=== PATIENT | male | born 1975 | race African-American/Black ===

== ENCOUNTER 2019-03-15 11:54 | Emergency (ER) | payer OTHER ==
[2019-03-15 12:07] VITALS: BMI 52.4
[2019-03-15] MEDS ORDERED: FAMOTIDINE 20 MG/50 ML IVPB 20 MG/50 ML MG IVPB ONE ×2 (12:23→12:44)
[2019-03-15] MEDS ORDERED: METOCLOPRAMIDE HCL INJECTION 10 MG/2 ML VIAL IVPUSH ONE (12:23)
[2019-03-15] MEDS ORDERED: FOLIC ACID INJECTION - 1 MG, THIAMINE HCL 100 MG, MULTIVIT INJECTION ADULT 10 ML in SOD... IVPB ONE (12:23)
[2019-03-15] MEDS ORDERED: SODIUM CHLORIDE 0.9% 500 ML INFUS.BAG IV ONE (12:23)
[2019-03-15] MEDS ORDERED: METOCLOPRAMIDE HCL INJECTION 10 MG/2 ML VIAL ONE (12:44)
[2019-03-15 13:02] LABS: BASO % 2.4 % (0-2.0); EOS % 0.3 % (0-4.5); HEMATOCRIT 40.2 % (35.4-49); HEMOGLOBIN 13.6 GM/dL (11.7-16.9); LYMPH % 51.9 % (8-40); MCH 28.6 pg (25.7-33.7); MCHC 33.9 g/dl (32.0-35.9); MEAN CELL VOLUME 84.2 fl (80-96); MEAN PLT VOLUME 7.5 fl (7.5-11.1); MONO % 12.9 % (3.8-10.2); NEUT % 32.5 % (42.8-82.8); PLATELET COUNT 315 K/MM3 (134-434); RBC 4.78 M/mm3 (4.00-5.60); RDW 16.8 % (11.9-15.9); WHITE BLOOD COUNT 5.5 K/mm3 (4.0-10.0)
--- NOTE | 2019-03-15 13:05 | PDOC ---
Documentation entered by Solange España SCRIBE, acting as scribe for Alesia Santos MD. Alesia Santos MD: This documentation has been prepared by the Patria guerin Xhesika, SCRIBE, under my direction and personally reviewed by me in its entirety. I confirm that the documentation accurately reflects all work, treatment, procedures, and medical decision making performed by me. History of Present Illness - General Chief Complaint: Alcohol intoxication Stated Complaint: intoxication History Source: Patient Exam Limitations: No Limitations - History of Present Illness Initial Comments: 03/15/19 12:28 HPI Patient is a 43 year old male with a significant past medical history of etoh use/dependence, HTN, IDDM who presents to the ED for alcohol intoxication and requesting detox. Patient notes he drinks 40ozx3, with last drink this morning. Pt reports associated abdominal pain, nausea, vomiting, and chest pain for several days. History is limited due to patient intox. Denies fever, chills, SOB, palpitations, dizziness, weakness, D, bladder and bowel problems, leg swelling, No sick contacts or travel. No new changes in medications. usually on lisinopril, lantus and humalog. Allergies: Shellfish derived Past Medical History: See HPI Social history: No tobacco. daily etoh use/dependence Meds: as documented in EMR Review of systems Constitutional: no fevers or chills. No weakness HEENT: no headache or dizziness. No congestion. No visual/hearing disturbances. CVS: + cp. No syncope. Resp: no sob. No cough. Gastrointestinal: + abdominal pain, nausea, vomiting. No diarrhea. Genitourinary: no urinary sx, hematuria. MUSCULOSKELETAL: No joint pain and swelling. No neck or back pain. SKIN: no redness or skin changes, no discharge, no rash. No wounds. Hematologic: no easy bruising/bleeding. NEUROLOGIC: No headache, dizziness, LOC or altered mental status. No weakness, numbness or tingling. Psych: no anxiety or depression Allergic/Immunologic: no allergies All other systems reviewed and negative, or as documented in HPI. Physical exam General: Well appearing, awake and alert, NAD. +intoxicated. + slurring speech. HEENT: NCAT, PERRL, EOMI, clear conjunctiva, anicteric, moist mucus membranes, clear oropharynx, no oral lesions.. Neck: neck supple, FROM Resp: CTAB, normal and even respirations, no respiratory distress CVS: +tachycardic. RRR, no murmurs, 2+ peripheral pulses throughout, no peripheral edema Abdomen: + morbidly obese. +Epigastrium TTP. soft, ND, no rebound or guarding. Back: nontender, normal inspection and ROM MSK: no edema, GIANG x4, ROM intact. No clubbing or cyanosis. normal bulk and tone. Extremities: no calf tenderness Neuro: alert, oriented appropriately; no focal neurologic deficits, +mildly tremulous in extremities Psych: Calm and cooperative Skin: warm and well perfused, cap refill <2 sec, normal color 03/15/19 15:07 Past History - Past Medical History Allergies/Adverse Reactions: Allergies Allergy/AdvReac Type Severity Reaction Status Date / Time shellfish derived Allergy Verified 03/15/19 11:59 *Physical Exam - Vital Signs Last Vital Signs Temp Pulse Resp BP Pulse Ox 98.6 F 108 H 20 162/112 H 95 03/15/19 12:00 03/15/19 12:00 03/15/19 12:00 03/15/19 12:00 03/15/19 12:00 Heart Score/ECG Review #1 ECG reviewed & interpreted by me at: 12:35 General ECG Interpretation: Sinus Rhythm, Normal Intervals Compared to previous ECG there are: Previous ECG unavail 03/15/19 13:04 nonspecific T wave abnormalities, part in lateral and III/AVF sinus tachycardia at 107 bpm 03/15/19 15:08 ED Treatment Course - LABORATORY CBC & Chemistry Diagram: 03/15/19 12:57 03/15/19 12:57 - ADDITIONAL ORDERS Additional order review: Laboratory Results 03/15/19 12:11 POC Glucometer 312 03/15/19 12:11 POC Glucometer 312 - Medications Given in the ED: ED Medications Discontinued Medications Generic Name Dose Route Start Last Admin Trade Name Freq PRN Reason Stop Dose Admin Metoclopramide HCl 10 mg 03/15/19 12:23 03/15/19 12:58 Reglan Injection - IVPUSH 03/15/19 12:24 10 mg ONCE ONE Administration Medical Decision Making - Medical Decision Making 03/15/19 13:03 Vital Signs Temp Pulse Resp BP Pulse Ox 98.6 F 108 H 20 162/112 H 95 03/15/19 12:00 03/15/19 12:00 03/15/19 12:00 03/15/19 12:00 03/15/19 12:00 DDx abdominal pain: Renal colic, biliary colic, metabolic/electrolyte derangements. GERD, PUD, esophageal spasm, pancreatitis, hepatitis, constipation , colitis, gastroenteritis, cholecystitis, medication side effect, hernia, ACS arrhythmia, alcohol intox, alcohol gastritis, alcohol w/d labs and lytes wnl. LFTs/lipase wnl. trop neg, EKG unremarkable, no elevations or depressions to suggest cardiac or arrhythmia etiology no e/o pancreatitis. given meds, analgesia, banana bag, IVF and antiemetics. sobriety, alcohol level 300s carley with intox state. librium for mild alcohol w/d, likely causing the tachycardia 03/15/19 14:59 - on reassessment, sober. pt monitored closely in the ED, sobriety hold. remained comfortable, no acute events, VS remain stable - intermittently hypertensive, +tachy - likely from alcohol w/d initially.. at time of discharge, patient denies any trauma, clinically improved, sober, speech clear, gait stable. tolerated PO intake, abdomen soft nontender, obese. no peritoneal findings. asymptomatic now. no acute neuro changes, normal mental status. no evidence of SI or HI or psychosis. persistent tachy up to 120s. still finishing fluids. still likely from ETOH w/d , but pt is clinically sober and states he feels better with the librium. Discussion at the bedside with patient - pt wishes to to leave prior to finishing fluids/tachy and reassessment. Pt has capacity to make medical decisions. I believe this patient is of sound mind and competent to refuse medical care. The patient is responding and asking questions appropriately. The patient is oriented to person, place and time. The patient is not psychotic, delusional, suicidal, homicidal or hallucinating. The patient demonstrates a normal mental capacity to make decisions regarding their healthcare. The patient is clinically sober and does not appear to be under the influence of any illicit drugs at this time. The patient has been advised of the risks, in layman terms, of leaving AMA which include, but are not limited to cardiopulmonary arrest, severe infection, blood stream infection, dehydration, bleeding, multiorgan failure including liver, kidney, brain, lung and heart, myocardial infarction, arrhythmia, stroke, seizure, respiratory failure, delay in diagnosis and management, loss of current lifestyle, loss of functional status, coma, severe disability and . Alternatives have been offered - the patient remains steadfast in their wish to leave. The patient has been advised that should they change their mind they are welcome to return to this hospital, or any other, at any time. The patient understands that in no way does an AMA discharge mean that I do not want them to have the best medical care available. To this end, I have provided appropriate prescriptions, referrals, and discharge instructions. The patient did sign AMA paperwork. The above discussion was witnessed by another member of staff, GENO Blancas offered detox and resources for ETOH abuse. prompt follow up encouraged. [facility] referral given, pt given referrals, we have called to discuss with facility for placement and assessment. 03/15/19 15:47 03/15/19 15:50 03/15/19 15:51 Discharge - Discharge Information Problems reviewed: Yes Clinical Impression/Diagnosis: Tachycardia Alcohol intoxication Qualifiers: Complication of substance-induced condition: uncomplicated Qualified Code(s): F10.920 - Alcohol use, unspecified with intoxication, uncomplicated Condition: Stable Disposition: AGAINST MEDICAL ADVICE - Admission No - Follow up/Referral Referrals: Pepe Newton MD [Staff Physician] - - Patient Discharge Instructions Patient Printed Discharge Instructions: DI for Alcohol Abuse Additional Instructions: SUBSTANCE ABUSE REFERRALS 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 you are of sound mind and competent to refuse medical care. you demonstrate a normal mental capacity to make decisions regarding their healthcare. The patient is clinically sober and does not appear to be under the influence of any illicit drugs at this time. you have been advised of the risks, in layman terms, of leaving AMA which include, but are not limited to cardiac arrest, severe infection, blood stream infection, dehydration, worsening bleeding, liver failure, arrhythmia, respiratory failure, delay in diagnosis and management, loss of current lifestyle, loss of functional status, multiorgan failure, seizure, coma, severe disability and . Alternatives have been offered - you are given referrals for specialists to see for your presentation. you have been advised that should they change their mind they are welcome to return to this hospital, or any other , at any time. you understand that in no way does an AMA discharge mean that I do not want them to have the best medical care available. To this end, I have provided appropriate prescriptions, referrals, and discharge instructions. you signed AMA paperwork. The above discussion was witnessed by another member of staff, GENO Blancas. - Post Discharge Activity
[2019-03-15 13:38] LABS: ALBUMIN 3.5 g/dl (3.4-5.0); ALK PHOS 101 U/L (45-117); ANION GAP 10 MMOL/L (8-16); BILIRUBIN,TOTAL 0.6 mg/dL (0.2-1); BLOOD UREA NITROGEN 3.6 mg/dL (7-18); CALCIUM 8.6 mg/dL (8.5-10.1); CHLORIDE 105 mmol/L (98-107); CO2 22 mmol/L (21-32); CREATININE 0.9 mg/dL (0.55-1.3); GLUCOSE,RANDOM 312 mg/dL (74-106); LIPASE 125 U/L (73-393); POTASSIUM 4.3 mmol/L (3.5-5.1); SGOT/AST 73 U/L (15-37); SGPT/ALT 67 U/L (13-61); SODIUM 137 mmol/L (136-145); TOT PROT 8.6 g/dl (6.4-8.2)
[2019-03-15] MEDS ORDERED: chlordiazePOXIDE HCL 25 MG CAPSULE PO ONE (14:31)
[2019-03-15] MEDS ORDERED: chlordiazePOXIDE HCL 25 MG CAPSULE ONE (14:36)
[2019-03-15 15:10] VITALS: TEMP 98.4
[2019-03-15 15:53] VITALS: BP 144/106; PULSE 123
--- NOTE | 2019-03-16 11:59 | EKG ---
Test Reason : Blood Pressure : / mmHG Vent. Rate : 107 BPM Atrial Rate : 107 BPM P-R Int : 132 ms QRS Dur : 072 ms QT Int : 322 ms P-R-T Axes : 065 019 007 degrees QTc Int : 429 ms SINUS TACHYCARDIA OTHERWISE NORMAL ECG NO PREVIOUS ECGS AVAILABLE Confirmed by MEREDITH MILES MD ([id number]) on 03/16/2019 11:59:24 AM Referred By: Confirmed By:MEREDITH MILES MD
== END 2019-03-15 15:56 | disposition left against medical advice (07) ==
LOC: JER 11:54
PROC: 3E033GC Introduction of Other Therapeutic Substance into Peripheral Vein, Percutaneous Approach (ICD-10-PCS; principal; 2019-03-15)
PROC: 3E033GC Introduction of Other Therapeutic Substance into Peripheral Vein, Percutaneous Approach (ICD-10-PCS; 2019-03-15)
DX: F10.220 Alcohol dependence with intoxication, uncomplicated (principal); R00.0 Tachycardia, unspecified; Y90.8 Blood alcohol level of 240 mg/100 ml or more; E10.65 Type 1 diabetes mellitus with hyperglycemia; Z79.4 Long term (current) use of insulin; I10 Essential (primary) hypertension; Z91.013 Allergy to seafood
CPT/HCPCS: 36415; 80053; 80307; 82962; 83690; 84484; 85025; 93005; 93010; 96365; 96366; 96367; 99284-25; J7030

== ENCOUNTER 2022-05-18 09:02 | Inpatient (IN) | payer OTHER ==
[2022-05-18] MEDS ORDERED: diazePAM CARPU-JECT 10 MG/2 ML DISP.SYRIN IVPUSH ONE ×3 (11:13→20:19)
[2022-05-18] MEDS ORDERED: diazePAM CARPU-JECT 10 MG/2 ML DISP.SYRIN ONE ×3 (12:24→20:59)
[2022-05-18 12:33] LABS: BASO % 1.4 % (0-2.0); LYMPH % 13.9 % (8-40); MCH 26.4 pg (25.7-33.7); MCHC 31.9 g/dl (32.0-35.9); MEAN CELL VOLUME 82.8 fl (80-96); MEAN PLT VOLUME 7.9 fl (7.5-11.1); MONO % 4.3 % (3.8-10.2); NEUT % 80.4 % (42.8-82.8); PLATELET COUNT 264 10^3/uL (134-434); RBC 5.32 M/mm3 (4.00-5.60); RDW 18.6 % (11.9-15.9); WHITE BLOOD COUNT 14.7 K/mm3 (4.0-10.0)
[2022-05-18 13:14] LABS: ALBUMIN 3.6 g/dl (3.4-5.0); BLOOD UREA NITROGEN 6.9 mg/dL (7-18); CALCIUM 9.1 mg/dL (8.5-10.1); MAGNESIUM 2.4 mg/dL (1.8-2.4)
[2022-05-18 13:18] LABS: CREATININE 0.9 mg/dL (0.55-1.3); PHOSPHOROUS 2.4 mg/dL (2.5-4.9)
[2022-05-18 13:20] LABS: BILIRUBIN,TOTAL 1.1 mg/dL (0.2-1)
[2022-05-18 13:21] LABS: TOT PROT 8.4 g/dl (6.4-8.2)
[2022-05-18] MEDS ORDERED: LACTATED RINGERS SOLUTION 1000 ML INFUS.BAG IV ONE (13:59)
[2022-05-18] MEDS ORDERED: LISINOPRIL 20 MG TABLET PO ONE (15:02)
[2022-05-18] MEDS ORDERED: LISINOPRIL 20 MG TABLET ONE (15:51)
[2022-05-18 16:35] LABS: VENOUS O2 SATURATION 85.5 % (70-80); VENOUS PCO2 24.4 mmHg (38-52); VENOUS PH 7.37 (7.310-7.410)
[2022-05-18 17:21] LABS: LACTIC ACID 2.2 mmol/L (0.4-2.0)
[2022-05-18] MEDS ORDERED: IBUPROFEN 400 MG TABLET (FP) PO ONE ×2 (17:49→18:09)
[2022-05-19] MEDS ORDERED: LORazepam 2 MG/ML SDV VIAL IVPUSH PRN (01:15)
[2022-05-19] MEDS ORDERED: diazePAM 5 MG TABLET PO PRN (01:58)
[2022-05-19] MEDS ORDERED: THIAMINE HCL 200 MG/2 ML VIAL ONE ×2 (02:22→11:04)
[2022-05-19] MEDS: THIAMINE HCL 200 MG/2 ML VIAL IVPB SCH ×3 (02:28→21:47)
[2022-05-19] MEDS ORDERED: ACETAMINOPHEN 1000 MG/100 ML BAG IVPB ONE (04:20)
[2022-05-19] MEDS ORDERED: IBUPROFEN 400 MG TABLET (FP) PO ONE (04:26)
[2022-05-19] MEDS ORDERED: ACETAMINOPHEN INJECTION 100 ML IVPB ONE (04:27)
[2022-05-19] MEDS ORDERED: NAPH,MB-DB/K PH,MBDB POWDER PACKET PO ONE (04:28)
[2022-05-19 08:14] LABS: BASO % 0.7 % (0-2.0); EOS % 0.6 % (0-4.5); HEMATOCRIT 41.5 % (35.4-49); HEMOGLOBIN 13.4 GM/dL (11.7-16.9); LYMPH % 23.4 % (8-40); MCH 26.6 pg (25.7-33.7); MCHC 32.4 g/dl (32.0-35.9); MEAN CELL VOLUME 82.3 fl (80-96); MEAN PLT VOLUME 7.9 fl (7.5-11.1); MONO % 5.4 % (3.8-10.2); NEUT % 69.9 % (42.8-82.8); PLATELET COUNT 195 10^3/uL (134-434); RBC 5.05 M/mm3 (4.00-5.60); RDW 18.1 % (11.9-15.9); WHITE BLOOD COUNT 8.7 K/mm3 (4.0-10.0)
[2022-05-19 08:38] LABS: ALBUMIN 3.4 g/dl (3.4-5.0); BLOOD UREA NITROGEN 6.4 mg/dL (7-18); CALCIUM 8.8 mg/dL (8.5-10.1)
[2022-05-19 08:39] LABS: MAGNESIUM 2.1 mg/dL (1.8-2.4)
[2022-05-19 08:41] LABS: CREATININE 0.9 mg/dL (0.55-1.3); PHOSPHOROUS 3.1 mg/dL (2.5-4.9)
[2022-05-19 08:42] LABS: TOT PROT 7.9 g/dl (6.4-8.2)
[2022-05-19 08:43] LABS: BILIRUBIN,TOTAL 1.5 mg/dL (0.2-1)
[2022-05-19] MEDS ORDERED: INSULIN (NOVOLOG) ASPART 100 UNITS/ML 10ML VIAL ONE (10:12)
[2022-05-19] MEDS: INSULIN SLIDING SCALE (NOVOLOG) 1 VIAL SQ SCH ×4 (10:32→21:47)
[2022-05-19] MEDS: FOLIC ACID INJECTION - 1 MG, THIAMINE HCL 100 MG, MULTIVIT INJECTION ADULT 10 ML in SOD... IVPB ONE ×2 (11:00→12:31)
[2022-05-19] MEDS: LISINOPRIL 20 MG TABLET PO SCH (11:00)
[2022-05-19] MEDS: ENOXAPARIN NA (PORCINE) 30 MG/0.3 ML DISP.SYRIN SQ SCH ×2 (11:00→21:46)
[2022-05-19] MEDS: FOLIC ACID 1 MG TABLET (FP) PO SCH (11:00)
[2022-05-19] MEDS ORDERED: LISINOPRIL 20 MG TABLET ONE (11:04)
[2022-05-19] MEDS ORDERED: ENOXAPARIN NA (PORCINE) 40 MG/0.4 ML DISP.SYRIN SQ ONE (11:05)
[2022-05-19] MEDS ORDERED: FOLIC ACID 1 MG TABLET (FP) ONE (11:05)
[2022-05-19] MEDS: diazePAM 5 MG TABLET PO SCH ×2 (16:08→22:26)
[2022-05-19] MEDS: BACITRACIN ZINC 15 GM TUBE TOPICAL OINTMENT TP SCH ×2 (17:00→21:47)
[2022-05-19] MEDS ORDERED: hydrALAZINE HCL 10 MG TABLET PO ONE (18:25)
[2022-05-19] MEDS ORDERED: FLU VACC QS2022-23(6MOS UP)/PF 60 MCG/0.5 ML SYRINGE IM ONE (19:00)
[2022-05-19 20:33] LABS: EPI CELLS 12 /uL (0-25.1); HYALINE CASTS 3 /uL (0-3.1); PH,URINE 5.5 (5.0-8.0); URINE APPEARANCE CLEAR; URINE BACTERIA 27 /uL (0-1359); URINE BILIRUBIN NEGATIVE (NEGATIVE); URINE COLOR YELLOW; URINE GLUCOSE (UA) 2+ (NEGATIVE); URINE KETONE 1+ (NEGATIVE); URINE LEUK ESTERASE NEGATIVE (NEGATIVE); URINE NITRITE NEGATIVE (NEGATIVE); URINE PROTEIN 1+ (NEGATIVE); URINE RBC 13 /uL (0-23.9); URINE UROBILINOGEN 0.2 mg/dL (0.2-1.0); URINE WBC 50 /uL (0-25.8)
[2022-05-19] MEDS ORDERED: hydrALAZINE HCL 10 MG TABLET PO SCH ×2 (22:00)
[2022-05-19] MEDS: INSULIN (LEVEMIR) 100 UNITS/ML UNITS SQ SCH (22:13)
[2022-05-20] MEDS ORDERED: hydrALAZINE HCL 20 MG/ML VIAL IVPUSH ONE (03:49)
[2022-05-20] MEDS: diazePAM 5 MG TABLET PO SCH ×4 (04:12→22:00)
[2022-05-20] MEDS: INSULIN SLIDING SCALE (NOVOLOG) 1 VIAL SQ SCH ×4 (06:28→21:27)
[2022-05-20 08:53] LABS: BASO % 1.1 % (0-2.0); HEMATOCRIT 44.3 % (35.4-49); HEMOGLOBIN 14.6 GM/dL (11.7-16.9); LYMPH % 27.8 % (8-40); MCH 26.7 pg (25.7-33.7); MCHC 32.9 g/dl (32.0-35.9); MEAN CELL VOLUME 81.2 fl (80-96); MEAN PLT VOLUME 8.5 fl (7.5-11.1); MONO % 5.3 % (3.8-10.2); NEUT % 63.8 % (42.8-82.8); PLATELET COUNT 119 10^3/uL (134-434); RBC 5.46 M/mm3 (4.00-5.60); RDW 17.5 % (11.9-15.9); WHITE BLOOD COUNT 8.2 K/mm3 (4.0-10.0)
[2022-05-20 09:20] LABS: ALBUMIN 3.1 g/dl (3.4-5.0); CREATININE 0.8 mg/dL (0.55-1.3)
[2022-05-20 09:21] LABS: BILIRUBIN,TOTAL 1.2 mg/dL (0.2-1); BLOOD UREA NITROGEN 5.7 mg/dL (7-18); MAGNESIUM 1.8 mg/dL (1.8-2.4); TOT PROT 7.6 g/dl (6.4-8.2)
[2022-05-20 09:22] LABS: CALCIUM 8.4 mg/dL (8.5-10.1)
[2022-05-20] MEDS: LISINOPRIL 20 MG TABLET PO SCH (09:28)
[2022-05-20] MEDS: THIAMINE HCL 200 MG/2 ML VIAL IVPB SCH ×2 (09:28→21:06)
[2022-05-20] MEDS: ENOXAPARIN NA (PORCINE) 30 MG/0.3 ML DISP.SYRIN SQ SCH (09:29)
[2022-05-20] MEDS: FOLIC ACID 1 MG TABLET (FP) PO SCH (09:30)
[2022-05-20] MEDS: BACITRACIN ZINC 15 GM TUBE TOPICAL OINTMENT TP SCH ×2 (09:31→21:04)
[2022-05-20] MEDS: hydrALAZINE HCL 10 MG TABLET PO SCH ×2 (09:34→14:35)
[2022-05-20] MEDS: ENOXAPARIN NA (PORCINE) 40 MG/0.4 ML DISP.SYRIN SQ SCH ×2 (10:09→21:04)
[2022-05-20] MEDS ORDERED: amLODIPine BESYLATE 5 MG TABLET (FP) PO ONE ×2 (15:54→19:34)
[2022-05-20] MEDS: HYDROCHLOROTHIAZIDE 25 MG TABLET (FP) PO SCH (16:07)
[2022-05-20] MEDS ORDERED: ACETAMINOPHEN 325 MG TABLET (FP) ONE (20:37)
[2022-05-20] MEDS: ACETAMINOPHEN 325 MG TABLET (FP) PO PRN (20:45)
[2022-05-20] MEDS: INSULIN (LEVEMIR) 100 UNITS/ML UNITS SQ SCH (21:04)
[2022-05-21] MEDS: diazePAM 5 MG TABLET PO SCH ×3 (06:02→21:31)
[2022-05-21] MEDS: INSULIN SLIDING SCALE (NOVOLOG) 1 VIAL SQ SCH ×4 (06:02→21:39)
[2022-05-21 08:24] LABS: BASO % 0.6 % (0-2.0); EOS % 3.3 % (0-4.5); HEMOGLOBIN 12.8 GM/dL (11.7-16.9); LYMPH % 30.7 % (8-40); MCH 26.8 pg (25.7-33.7); MCHC 32.7 g/dl (32.0-35.9); MEAN CELL VOLUME 81.7 fl (80-96); MONO % 5.5 % (3.8-10.2); NEUT % 59.9 % (42.8-82.8); PLATELET COUNT 135 10^3/uL (134-434); RBC 4.77 M/mm3 (4.00-5.60); RDW 17.3 % (11.9-15.9); WHITE BLOOD COUNT 7.4 K/mm3 (4.0-10.0)
[2022-05-21 08:29] LABS: ALBUMIN 2.8 g/dl (3.4-5.0); BLOOD UREA NITROGEN 5.9 mg/dL (7-18); CALCIUM 8.3 mg/dL (8.5-10.1); MAGNESIUM 1.6 mg/dL (1.8-2.4)
[2022-05-21 08:32] LABS: CREATININE 0.6 mg/dL (0.55-1.3)
[2022-05-21 08:33] LABS: TOT PROT 6.7 g/dl (6.4-8.2)
[2022-05-21] MEDS: ACETAMINOPHEN 325 MG TABLET (FP) PO PRN (09:18)
[2022-05-21] MEDS: LISINOPRIL 20 MG TABLET PO SCH (09:19)
[2022-05-21] MEDS: HYDROCHLOROTHIAZIDE 25 MG TABLET (FP) PO SCH (09:19)
[2022-05-21] MEDS: ENOXAPARIN NA (PORCINE) 40 MG/0.4 ML DISP.SYRIN SQ SCH ×2 (09:19→21:30)
[2022-05-21] MEDS: BACITRACIN ZINC 15 GM TUBE TOPICAL OINTMENT TP SCH ×2 (09:19→21:32)
[2022-05-21] MEDS: amLODIPine BESYLATE 10 MG TABLET (FP) PO SCH (09:19)
[2022-05-21] MEDS: THIAMINE HCL 200 MG/2 ML VIAL IVPB SCH ×2 (09:20→21:32)
[2022-05-21] MEDS: FOLIC ACID 1 MG TABLET (FP) PO SCH (09:20)
[2022-05-21] MEDS ORDERED: amLODIPine BESYLATE 5 MG TABLET (FP) PO SCH (10:00)
[2022-05-21] MEDS ORDERED: POTASSIUM CHLORIDE TABS 20 MEQ TABLET.ER (FP) PO ONE (12:28)
[2022-05-21] MEDS ORDERED: MAGNESIUM OXIDE 400 MG TABLET (FP) PO ONE (12:28)
[2022-05-21] MEDS ORDERED: MAGNESIUM SULF 50% (8.12 MEQ/2 ML-1 GM VIAL) IVPB ONE (13:23)
[2022-05-21] MEDS: INSULIN (LEVEMIR) 100 UNITS/ML UNITS SQ SCH (21:39)
[2022-05-22] MEDS ORDERED: diazePAM 5 MG TABLET PO SCH (06:00)
[2022-05-22] MEDS: INSULIN SLIDING SCALE (NOVOLOG) 1 VIAL SQ SCH ×4 (07:08→21:24)
[2022-05-22] MEDS: ACETAMINOPHEN 325 MG TABLET (FP) PO PRN (07:45)
[2022-05-22 08:32] LABS: BASO % 0.6 % (0-2.0); HEMOGLOBIN 13.3 GM/dL (11.7-16.9); LYMPH % 33.2 % (8-40); MCH 27.1 pg (25.7-33.7); MCHC 33.1 g/dl (32.0-35.9); MEAN CELL VOLUME 81.6 fl (80-96); MEAN PLT VOLUME 8.2 fl (7.5-11.1); MONO % 6.7 % (3.8-10.2); NEUT % 55.5 % (42.8-82.8); PLATELET COUNT 136 10^3/uL (134-434); RDW 17.2 % (11.9-15.9); WHITE BLOOD COUNT 7.2 K/mm3 (4.0-10.0)
[2022-05-22 08:59] LABS: CALCIUM 8.5 mg/dL (8.5-10.1)
[2022-05-22 09:00] LABS: ALBUMIN 2.9 g/dl (3.4-5.0); BLOOD UREA NITROGEN 7.5 mg/dL (7-18); MAGNESIUM 1.9 mg/dL (1.8-2.4)
[2022-05-22 09:03] LABS: CREATININE 0.7 mg/dL (0.55-1.3)
[2022-05-22 09:04] LABS: BILIRUBIN,TOTAL 0.9 mg/dL (0.2-1); TOT PROT 6.8 g/dl (6.4-8.2)
[2022-05-22] MEDS: ENOXAPARIN NA (PORCINE) 40 MG/0.4 ML DISP.SYRIN SQ SCH ×2 (09:51→21:25)
[2022-05-22] MEDS: LISINOPRIL 20 MG TABLET PO SCH (09:51)
[2022-05-22] MEDS: HYDROCHLOROTHIAZIDE 25 MG TABLET (FP) PO SCH (09:51)
[2022-05-22] MEDS: amLODIPine BESYLATE 10 MG TABLET (FP) PO SCH (09:51)
[2022-05-22] MEDS: FOLIC ACID 1 MG TABLET (FP) PO SCH (09:54)
[2022-05-22] MEDS: BACITRACIN ZINC 15 GM TUBE TOPICAL OINTMENT TP SCH ×2 (10:05→21:29)
[2022-05-22] MEDS: THIAMINE HCL 200 MG/2 ML VIAL IVPB SCH ×2 (10:06→21:25)
[2022-05-22] MEDS: clonazePAM 0.5 MG TABLET PO PRN (15:25)
[2022-05-22 16:52] VITALS: BMI 48.4
[2022-05-22] MEDS: POTASSIUM CHLORIDE TABS 20 MEQ TABLET.ER (FP) PO SCH (17:16)
[2022-05-22] MEDS ORDERED: MELATONIN 5 MG TABLETS PO ONE (21:10)
[2022-05-22] MEDS: INSULIN (LEVEMIR) 100 UNITS/ML UNITS SQ SCH (21:24)
[2022-05-23] MEDS ORDERED: traZODone HCL 150 MG TABLET PO ONE (01:27)
[2022-05-23] MEDS ORDERED: traZODone HCL 100 MG, traZODone HCL 50 MG PO ONE (01:45)
[2022-05-23] MEDS ORDERED: diazePAM 5 MG TABLET PO ONE (06:00)
[2022-05-23] MEDS: INSULIN SLIDING SCALE (NOVOLOG) 1 VIAL SQ SCH ×4 (06:11→21:10)
[2022-05-23] MEDS: THIAMINE HCL 200 MG/2 ML VIAL IVPB SCH ×2 (09:49→22:22)
[2022-05-23] MEDS: HYDROCHLOROTHIAZIDE 25 MG TABLET (FP) PO SCH (09:52)
[2022-05-23] MEDS: amLODIPine BESYLATE 10 MG TABLET (FP) PO SCH (09:52)
[2022-05-23] MEDS: FOLIC ACID 1 MG TABLET (FP) PO SCH (09:52)
[2022-05-23] MEDS: clonazePAM 0.5 MG TABLET PO PRN ×2 (09:53→22:22)
[2022-05-23] MEDS: LISINOPRIL 20 MG TABLET PO SCH (09:53)
[2022-05-23] MEDS: ENOXAPARIN NA (PORCINE) 40 MG/0.4 ML DISP.SYRIN SQ SCH ×2 (09:53→21:05)
[2022-05-23] MEDS: POTASSIUM CHLORIDE TABS 20 MEQ TABLET.ER (FP) PO SCH (09:53)
[2022-05-23] MEDS: BACITRACIN ZINC 15 GM TUBE TOPICAL OINTMENT TP SCH ×2 (09:53→21:12)
[2022-05-23 11:54] LABS: BASO % 0.6 % (0-2.0); EOS % 3.8 % (0-4.5); HEMATOCRIT 37.9 % (35.4-49); HEMOGLOBIN 12.5 GM/dL (11.7-16.9); LYMPH % 24.9 % (8-40); MCH 27.1 pg (25.7-33.7); MEAN PLT VOLUME 8.6 fl (7.5-11.1); MONO % 7.9 % (3.8-10.2); NEUT % 62.8 % (42.8-82.8); PLATELET COUNT 135 10^3/uL (134-434); RBC 4.62 M/mm3 (4.00-5.60); RDW 17.5 % (11.9-15.9); WHITE BLOOD COUNT 6.5 K/mm3 (4.0-10.0)
[2022-05-23 12:06] LABS: ALBUMIN 2.9 g/dl (3.4-5.0); BLOOD UREA NITROGEN 8.4 mg/dL (7-18); CALCIUM 8.8 mg/dL (8.5-10.1)
[2022-05-23 12:09] LABS: CREATININE 0.7 mg/dL (0.55-1.3)
[2022-05-23 12:11] LABS: BILIRUBIN,TOTAL 0.9 mg/dL (0.2-1); TOT PROT 6.6 g/dl (6.4-8.2)
[2022-05-23] MEDS ORDERED: ACETAMINOPHEN 325 MG TABLET (FP) PO PRN (13:49)
[2022-05-23 17:41] LABS: MAGNESIUM 1.6 mg/dL (1.8-2.4); PHOSPHOROUS 2.9 mg/dL (2.5-4.9)
[2022-05-23] MEDS ORDERED: traZODone HCL 50 MG TABLET (FP) PO ONE (21:00)
[2022-05-23] MEDS: INSULIN (LEVEMIR) 100 UNITS/ML UNITS SQ SCH (21:10)
[2022-05-24] MEDS ORDERED: MELATONIN 5 MG TABLETS PO ONE (02:58)
[2022-05-24] MEDS: INSULIN SLIDING SCALE (NOVOLOG) 1 VIAL SQ SCH ×4 (07:00→21:24)
[2022-05-24] MEDS ORDERED: MAGNESIUM 2GM/50ML STERILE WATER IVPB IVPB ONE (08:30)
[2022-05-24] MEDS: HYDROCHLOROTHIAZIDE 25 MG TABLET (FP) PO SCH (09:27)
[2022-05-24] MEDS: LISINOPRIL 20 MG TABLET PO SCH (09:27)
[2022-05-24] MEDS: FOLIC ACID 1 MG TABLET (FP) PO SCH (09:27)
[2022-05-24] MEDS: ENOXAPARIN NA (PORCINE) 40 MG/0.4 ML DISP.SYRIN SQ SCH ×2 (09:27→21:27)
[2022-05-24] MEDS: POTASSIUM CHLORIDE TABS 20 MEQ TABLET.ER (FP) PO SCH (09:27)
[2022-05-24] MEDS: BACITRACIN ZINC 15 GM TUBE TOPICAL OINTMENT TP SCH ×2 (09:28→21:27)
[2022-05-24] MEDS: amLODIPine BESYLATE 10 MG TABLET (FP) PO SCH (09:28)
[2022-05-24] MEDS: clonazePAM 0.5 MG TABLET PO PRN ×2 (09:28→21:32)
[2022-05-24] MEDS: THIAMINE HCL 200 MG/2 ML VIAL IVPB SCH ×2 (09:28→21:23)
[2022-05-24] MEDS ORDERED: MELATONIN 5 MG TABLETS PO PRN (10:12)
[2022-05-24] MEDS ORDERED: traZODone HCL 50 MG TABLET (FP) PO SCH (10:15)
[2022-05-24] MEDS ORDERED: traZODone HCL 100 MG TABLET (FP) PO SCH ×2 (11:44→22:00)
[2022-05-24 12:08] LABS: BASO % 0.7 % (0-2.0); EOS % 4.3 % (0-4.5); HEMATOCRIT 37.5 % (35.4-49); HEMOGLOBIN 12.3 GM/dL (11.7-16.9); MCH 27.1 pg (25.7-33.7); MCHC 32.8 g/dl (32.0-35.9); MEAN CELL VOLUME 82.6 fl (80-96); MEAN PLT VOLUME 8.6 fl (7.5-11.1); PLATELET COUNT 136 10^3/uL (134-434); RBC 4.54 M/mm3 (4.00-5.60); RDW 17.8 % (11.9-15.9); WHITE BLOOD COUNT 6.5 K/mm3 (4.0-10.0)
[2022-05-24 12:35] LABS: CALCIUM 8.5 mg/dL (8.5-10.1)
[2022-05-24 12:36] LABS: ALBUMIN 2.8 g/dl (3.4-5.0); BLOOD UREA NITROGEN 6.3 mg/dL (7-18); MAGNESIUM 1.8 mg/dL (1.8-2.4)
[2022-05-24 12:39] LABS: CREATININE 0.8 mg/dL (0.55-1.3); PHOSPHOROUS 3.2 mg/dL (2.5-4.9)
[2022-05-24 12:40] LABS: BILIRUBIN,TOTAL 0.5 mg/dL (0.2-1); TOT PROT 6.8 g/dl (6.4-8.2)
[2022-05-24] MEDS: INSULIN (LEVEMIR) 100 UNITS/ML UNITS SQ SCH (21:25)
[2022-05-25] MEDS: INSULIN SLIDING SCALE (NOVOLOG) 1 VIAL SQ SCH ×2 (06:01→11:47)
[2022-05-25 09:15] VITALS: RESP 19
[2022-05-25] MEDS: ENOXAPARIN NA (PORCINE) 40 MG/0.4 ML DISP.SYRIN SQ SCH (09:41)
[2022-05-25] MEDS: LISINOPRIL 20 MG TABLET PO SCH (09:42)
[2022-05-25] MEDS: FOLIC ACID 1 MG TABLET (FP) PO SCH (09:42)
[2022-05-25] MEDS: amLODIPine BESYLATE 10 MG TABLET (FP) PO SCH (09:42)
[2022-05-25] MEDS: clonazePAM 0.5 MG TABLET PO PRN (09:42)
[2022-05-25] MEDS: BACITRACIN ZINC 15 GM TUBE TOPICAL OINTMENT TP SCH (09:43)
[2022-05-25] MEDS: HYDROCHLOROTHIAZIDE 25 MG TABLET (FP) PO SCH (09:43)
[2022-05-25] MEDS: THIAMINE HCL 200 MG/2 ML VIAL IVPB SCH (09:43)
[2022-05-25] MEDS ORDERED: ESCITALOPRAM OXALATE 20 MG TABLET PO SCH (10:00)
[2022-05-25 10:37] LABS: BASO % 0.7 % (0-2.0); EOS % 3.2 % (0-4.5); HEMATOCRIT 36.4 % (35.4-49); LYMPH % 32.6 % (8-40); MCH 27.3 pg (25.7-33.7); MCHC 33.1 g/dl (32.0-35.9); MEAN CELL VOLUME 82.6 fl (80-96); MEAN PLT VOLUME 8.2 fl (7.5-11.1); MONO % 11.8 % (3.8-10.2); NEUT % 51.7 % (42.8-82.8); PLATELET COUNT 146 10^3/uL (134-434); WHITE BLOOD COUNT 6.4 K/mm3 (4.0-10.0)
[2022-05-25 11:15] LABS: ALBUMIN 2.8 g/dl (3.4-5.0); BLOOD UREA NITROGEN 7.7 mg/dL (7-18); CALCIUM 8.3 mg/dL (8.5-10.1)
[2022-05-25 11:16] LABS: MAGNESIUM 1.9 mg/dL (1.8-2.4)
[2022-05-25 11:18] LABS: CREATININE 0.6 mg/dL (0.55-1.3); PHOSPHOROUS 3.5 mg/dL (2.5-4.9)
[2022-05-25 11:20] LABS: TOT PROT 6.2 g/dl (6.4-8.2)
[2022-05-25] MEDS ORDERED: INSULIN (LEVEMIR) 100 UNITS/ML UNITS SQ SCH (13:32)
[2022-05-25 15:06] VITALS: BP 142/91; PULSE 115; TEMP 96.8
[2022-05-25] MEDS ORDERED: metFORMIN HCL 500 MG TABLET (FP) PO SCH (16:30)
== END 2022-05-25 16:00 | disposition home or self-care (01) | DRG 897 ==
LOC: JER 09:02 → JERBED 20:19 → OBSVTOIN 05-19 01:54 → J4W 05-19 14:26 → J5S 05-22 10:48
PROVIDERS: ADMIT Internal Medicine; ATTEND Internal Medicine
PROC: HZ2ZZZZ Detoxification Services for Substance Abuse Treatment (ICD-10-PCS; principal; 2022-05-18)
DX: F10.239 Alcohol dependence with withdrawal, unspecified (principal); Z68.42 Body mass index [BMI] 45.0-49.9, adult; R26.81 Unsteadiness on feet; E66.01 Morbid (severe) obesity due to excess calories; E11.65 Type 2 diabetes mellitus with hyperglycemia; F41.8 Other specified anxiety disorders; R29.898 Other symptoms and signs involving the musculoskeletal system; I16.0 Hypertensive urgency; R00.0 Tachycardia, unspecified; E87.6 Hypokalemia; Z98.84 Bariatric surgery status; Z91.14 Patient's other noncompliance with medication regimen; M25.551 Pain in right hip; E88.89 Other specified metabolic disorders; S80.212A Abrasion, left knee, initial encounter; S80.211A Abrasion, right knee, initial encounter; W18.39XA Other fall on same level, initial encounter; Y92.89 Other specified places as the place of occurrence of the external cause
CPT/HCPCS: 0241U-QW; 36415; 70450-TC; 71045-TC-FY; 72170-TC-FY; 73502-TC-RT-FY; 80053; 80307; 81003; 82010; 82803; 82962; 83036; 83605; 83735; 83880; 84100; 84484; 85025; 93005; 93010; 93306-TC; 97116-GP; 97162-GP; 99285-25; G0008; G0378; Q2036